=== PATIENT | male | born 1970 | race Hispanic/Latino ===

== ENCOUNTER 2022-05-30 23:25 | Inpatient (IN) | payer SELFPAY ==
[2022-05-30] MEDS ORDERED: FENTANYL CITR 100 MCG/2 ML ONE (23:46)
[2022-05-31 00:01] LABS: Absolute Lymphocytes (CBC) 2.8 K/uL (0.7-4.9); Hematocrit 43.7 % (39.6-49.0); Lymphocytes % 26.9 % (15.3-44.8); MCV 89.8 fL (80-100); MPV 8.9 fL (7.6-11.3); RBC Red Blood Cell Count 4.87 M/uL (4.33-5.43)
[2022-05-31 00:25] LABS: Albumin 3.2 g/dL (3.4-5.0); Bilirubin Direct 0.1 mg/dL (0-0.2); Bilirubin Total 0.3 mg/dL (0.2-1.0); Magnesium 1.8 mg/dL (1.8-2.4); Potassium 3.5 mmol/L (3.5-5.1)
[2022-05-31 00:26] LABS: Troponin High Sensitivity 1410.3 pg/mL (<58.9)
--- NOTE | 2022-05-31 00:56 | ER ---
Nurse's Notes [facility] Name: Lux Wilkerson Age: 51 yrs Sex: Male : 1970 Arrival Date: 05/30/2022 Time: 23:26 Bed 25 Private MD: Diagnosis: Subsequent non-ST elevation (NSTEMI) myocardial infarction Presentation: 05/30 23:27 Chief complaint: EMS states: they were toned out for report of pt with chest pain x 1 bb hour pt had STEMI May 23, 2022 seen at [facility] and had 2 stents placed. Coronavirus screen: At this time, the client does not indicate any symptoms associated with coronavirus-19. Ebola Screen: No symptoms or risks identified at this time. Initial Sepsis Screen: Does the patient meet any 2 criteria? No. Patient's initial sepsis screen is negative. Does the patient have a suspected source of infection? No. Patient's initial sepsis screen is negative. Risk Assessment: Do you want to hurt yourself or someone else? Patient reports no desire to harm self or others. Onset of symptoms was May 30, 2022. 23:27 Method Of Arrival: EMS: [facility] bb 23:27 Acuity: SHREYA 3 bb 23:32 Care prior to arrival: Medication(s) given: ASA, 81 mg, x 4, IV initiated. 20 GA, in bb the left hand. Triage Assessment: 23:46 General: Appears in no apparent distress. Behavior is cooperative. Pain: Complains of sm5 pain in chest. Neuro: Level of Consciousness is awake, alert, obeys commands, Oriented to person, place, time, situation. Cardiovascular: Reports chest pain, Capillary refill < 3 seconds Patient's skin is warm and dry. Respiratory: Airway is patent Trachea midline Respiratory effort is even, unlabored. Historical: - Allergies: 23:28 No Known Allergies; bb - Home Meds: 23:28 amlodipine oral [Active]; aripiprazole oral [Active]; Brilinta oral [Active]; bb Benztropine Mesylate Oral [Active]; sertraline oral [Active]; Hydroxyzine Oral [Active]; Metformin Oral [Active]; clopidogrel oral [Active]; rosuvastatin oral [Active]; - PMHx: 23:28 Hypertensive disorder; Diabetes mellitus; Bipolar disorder; High cholesterol; Coronary bb atherosclerosis; - PSHx: 23:28 heart stents; bb - Immunization history:: Adult Immunizations up to date. - Social history:: Smoking status: unknown. Screenin:45 Abuse screen: Denies threats or abuse. Denies injuries from another. Nutritional [facility] screening: No deficits noted. Tuberculosis screening: No symptoms or risk factors identified. Fall Risk None identified. Assessment: 05/31 00:00 Reassessment: see triage assessment. [facility] 01:29 Reassessment: No changes from previously documented assessment. Patient and/or family [facility] updated on plan of care and expected duration. Pain level reassessed. Vital Signs: 05/30 23:28 BP 113 / 66; Pulse 63; Resp 19; Temp 98.1(O); Pulse Ox 98% on R/A; Weight 111.13 kg; 5 Height 5 ft. 7 in. (170.18 cm); Pain 3/10; 23:28 Body Mass Index 38.37 (111.13 kg, 170.18 cm) [facility] ED Course: 23:26 Patient arrived in ED. mw2 23:27 Jason Milligan PA is PHCP. cp 23:27 Orville Brink MD is Attending Physician. cp 23:28 Triage completed. bb 23:28 Melinda Robertson RN is Primary Nurse. [facility] 23:28 Arm band placed on Patient placed in an exam room, on a stretcher, on high school tutor, bb on pulse oximetry. EKG completed in triage. Results shown to MD. 23:41 COVID-19 SARS RT PCR (Document "Date of Onset" if Symptomatic) Sent. [facility] 23:45 Maintain EMS IV. Dressing intact. Good blood return noted. Site clean \\T\\ dry. Gauge \\T\\ 5 site: 20G L hand. 23:46 Patient has correct armband on for positive identification. Bed in low position. Call [facility] light in reach. Side rails up X2. 23:51 XRAY Chest (1 view) In Process Unspecified. EDMS 05/31 00:55 Steven Bolden MD is Hospitalizing Provider. cp Administered Medications: 05/30 23:40 Drug: fentaNYL (PF) 25 mcg Route: IVP; Site: left hand; [facility] 05/31 01:29 Follow up: Response: No adverse reaction sm5 01:01 Drug: Lovenox (enoxaparin) 1 mg/kg Route: Sub-Q; Site: left upper abdomen; 5 01:29 Follow up: Response: No adverse reaction 5 01:40 Drug: NS 0.9% 1000 ml Route: IV; Rate: 500 ml/hr; Site: left hand; 5 01:40 Drug: morphine 2 mg Route: IVP; Infused Over: 4 mins; Site: left hand; [facility] Outcome: 00:55 Decision to Hospitalize by Provider. cp 16:05 Patient left the ED. meme Signatures: Dispatcher [employer] EDMS Regina Villanueva, RN RN bb Jason Milligan PA PA cp [place], MyKena 2 Melinda Robertson RN RN 5 Sivan Harmon Corrections: (The following items were deleted from the chart) 01:05/30 23:41 BASIC METABOLIC PANEL+C.LAB.BRZ drawn and sent. 5 EDSD 05/31 01:05/30 23:41 CBC+H.LAB.BRZ drawn and sent. [address] 05/31 01:05/30 23:41 Troponin High Sensitivity+C.LAB.BRZ drawn and sent. [address]
--- NOTE | 2022-05-31 00:56 | EDPHYS ---
Physician Documentation [facility] Name: Lux Wilkerson Age: 51 yrs Sex: Male : 1970 Arrival Date: 05/30/2022 Time: 23:26 Bed 25 Private MD: ED Physician Orville Brink HPI: 05/30 23:35 This 51 yrs old Male presents to ER via EMS with complaints of Chest Pain. cp 23:35 The patient or guardian reports chest pain that is located primarily in the anterior cp chest wall, left. Onset: 1 hour(s) ago. The pain does not radiate. The chest pain is described as grabbing. Duration: The patient or guardian reports a single episode, that is still ongoing, but improving. 23:35 Patient reports history of NV on 05-23-2022 in which he was admitted to [facility] in [facility] where he had 2 cardiac stents placed. Historical: - Allergies: 23:28 No Known Allergies; bb - Home Meds: 23:28 amlodipine oral [Active]; aripiprazole oral [Active]; Brilinta oral [Active]; bb Benztropine Mesylate Oral [Active]; sertraline oral [Active]; Hydroxyzine Oral [Active]; Metformin Oral [Active]; clopidogrel oral [Active]; rosuvastatin oral [Active]; - PMHx: 23:28 Hypertensive disorder; Diabetes mellitus; Bipolar disorder; High cholesterol; Coronary bb atherosclerosis; - PSHx: 23:28 heart stents; bb - Immunization history:: Adult Immunizations up to date. - Social history:: Smoking status: unknown. ROS: 23:40 Constitutional: Negative for body aches, chills, fever, poor PO intake. cp 23:40 Cardiovascular: Positive for chest pain, Negative for edema, palpitations. 23:40 Eyes: Negative for injury, pain, redness, and discharge. cp Exam: 23:33 ECG was reviewed by the Attending Physician. cp 23:43 Constitutional: The patient appears in no acute distress, alert, awake, cp non-diaphoretic, non-toxic, well developed, well nourished, obese, uncomfortable. 23:43 Head/Face: Normocephalic, atraumatic. cp 23:43 Eyes: Periorbital structures: appear normal, Conjunctiva: normal, no exudate, no injection, Sclera: no appreciated abnormality, Lids and lashes: appear normal, bilaterally. 23:43 ENT: External ear(s): are unremarkable, Nose: is normal, Mouth: Lips: moist, Oral mucosa: moist, Posterior pharynx: Airway: no evidence of obstruction, patent. 23:43 Neck: ROM/movement: is normal, is supple, without pain, no range of motions limitations. 23:43 Chest/axilla: Inspection: normal, Palpation: is normal, no crepitus, no tenderness. 23:43 Cardiovascular: Rate: normal, Rhythm: regular, Edema: is not appreciated, JVD: is not appreciated. 23:43 Respiratory: the patient does not display signs of respiratory distress, Respirations: cp normal, no use of accessory muscles, no retractions, labored breathing, is not present, Breath sounds: are clear throughout, no decreased breath sounds, no stridor, no wheezing. 23:43 Abdomen/GI: Inspection: abdomen appears normal, Bowel sounds: active, all quadrants, cp Palpation: abdomen is soft and non-tender, in all quadrants. 23:43 Back: pain, is absent, ROM is normal. 23:43 Neuro: Orientation: to person, place \\T\\ time. Mentation: is normal, Cerebellar function: is grossly normal, Motor: moves all fours, strength is normal, Sensation: is normal. Vital Signs: 23:28 BP 113 / 66; Pulse 63; Resp 19; Temp 98.1(O); Pulse Ox 98% on R/A; Weight 111.13 kg; sm5 Height 5 ft. 7 in. (170.18 cm); Pain 3/10; 23:28 Body Mass Index 38.37 (111.13 kg, 170.18 cm) sm5 MDM: 23:34 Patient medically screened. cp 05/31 00:35 The patient was not given aspirin in the Emergency Department. Administered by EMS. cp 00:35 Data reviewed: vital signs, nurses notes, lab test result(s), EKG, radiologic studies, cp plain films. Test interpretation: by ED physician or midlevel provider: ECG, plain radiologic studies. Response to treatment: the patient's symptoms have mildly improved after treatment, and as a result, I will admit patient. 05/30 23:33 Order name: Basic Metabolic Panel; Complete Time: 00:31 cp 05/30 23:33 Order name: CBC with Diff; Complete Time: 00:19 cp 05/30 23:33 Order name: LFT's; Complete Time: 00:31 cp 05/30 23:33 Order name: Magnesium; Complete Time: 00:31 cp 05/30 23:33 Order name: NT PRO-BNP; Complete Time: 00:31 cp 05/30 23:33 Order name: PT-INR; Complete Time: 00:19 cp 05/30 23:33 Order name: Troponin HS; Complete Time: 00:31 cp 05/31 00:32 Interpretation: Abnormal: Troponin HS 1410.3. cp 05/30 23:33 Order name: COVID-19 SARS RT PCR (Document "Date of Onset" if Symptomatic); Complete cp Time: 01:04 05/31 05:13 Order name: Creatine Phosphokinase; Complete Time: 05:14 EDMS 05/31 05:13 Order name: CKMB Creatine Kinase MB; Complete Time: 05:14 EDHI 05/31 05:13 Order name: Troponin High Sensitivity; Complete Time: 05:14 EDMS 05/30 23:32 Order name: EKG; Complete Time: 23:33 05/30 23:32 Order name: Cardiac monitoring; Complete Time: 23:36 05/30 23:32 Order name: EKG - Nurse/Tech; Complete Time: 23:36 05/30 23:33 Order name: XRAY Chest (1 view); Complete Time: 13:28 05/30 23:33 Order name: EKG; Complete Time: 23:35 05/31 05:13 Order name: Lipid Profile; Complete Time: 05:14 EDMS 05/31 05:14 Order name: Thyroid Stimulating Hormone; Complete Time: 05:14 EDMS 05/31 08:22 Order name: Glucose, Ancillary Testing; Complete Time: 13:28 EDMS 05/31 11:37 Order name: Troponin High Sensitivity; Complete Time: 13:28 EDMS 05/31 12:19 Order name: Glucose, Ancillary Testing; Complete Time: 13:28 EDMS 05/31 12:46 Order name: Urinalysis; Complete Time: 13:28 EDHI 05/30 23:32 Order name: IV Saline Lock; Complete Time: 23:45 05/30 23:32 Order name: Labs collected and sent; Complete Time: 23:45 bb 05/30 23:32 Order name: O2 Per Protocol; Complete Time: 23:36 bb 05/30 23:32 Order name: O2 Sat Monitoring; Complete Time: 23:36 bb 05/30 23:33 Order name: Cardiac monitoring; Complete Time: 23:41 cp 05/30 23:33 Order name: EKG - Nurse/Tech; Complete Time: 23:41 cp 05/30 23:33 Order name: IV Saline Lock; Complete Time: 23:41 cp 05/30 23:33 Order name: Labs collected and sent; Complete Time: 23:41 cp 05/30 23:33 Order name: O2 Per Protocol; Complete Time: :41 cp 05/30 23:33 Order name: O2 Sat Monitoring; Complete Time: :41 cp EC/12 23:33 Rate is 60 beats/min. Rhythm is regular. NV interval is normal. QRS interval is normal. cp QT interval is normal. T waves are Inverted in leads II, aVF, aVR, V3, V4, V5, V6. Interpreted by me. Reviewed by me. Administered Medications: 23:40 Drug: fentaNYL (PF) 25 mcg Route: IVP; Site: left hand; [facility] 05/31 01:29 Follow up: Response: No adverse reaction sm5 01:01 Drug: Lovenox (enoxaparin) 1 mg/kg Route: Sub-Q; Site: left upper abdomen; sm5 01:29 Follow up: Response: No adverse reaction sm5 01:40 Drug: NS 0.9% 1000 ml Route: IV; Rate: 500 ml/hr; Site: left hand; sm5 01:40 Drug: morphine 2 mg Route: IVP; Infused Over: 4 mins; Site: left hand; 5 Disposition: 06:05 Co-signature as Attending Physician, Orville Brink MD. mh7 Disposition Summary: 05/31/22 00:55 Hospitalization Ordered Hospitalization Status: Inpatient Admission cp Provider: Steven Bolden cp Condition: Stable cp Problem: new cp Symptoms: have improved cp Bed/Room Type: Standard cp Location: [facility] ER HOLD(05/31/22 02:09) Room Assignment: ERHOLD-(05/31/22 02:09) cg Diagnosis - Subsequent non-ST elevation (NSTEMI) myocardial infarction cp Forms: - Medication Reconciliation Form cp - SBAR form cp Signatures: Dispatcher [employer] EDHI Regina Villanueva, TIFFANIE RN Jason Steven PA PA cp Garcia, Cindy, RN RN cg Orville Brink MD MD mh7 Melinda Robertson RN RN sm5 Neisha Aguillon PA PA sb3 Corrections: (The following items were deleted from the chart) 05/30 23:41 23:33 Chest Single View+RAD.RAD.BRZ [facility]. [facility] 01:05/30 23:33 BASIC METABOLIC PANEL+C.LAB.BRZ ordered. [facility] 01:05/30 23:33 CBC+H.LAB.BRZ ordered. [facility] 05/[facility] 01:05/30 23:33 Troponin High Sensitivity+C.LAB.BRZ ordered. [facility] 05/31 02:09 00:55 Telemetry/MedSurg (Inpatient) cp cg 02:09 00:55 cp cg 03:05 05/30 22:40 Constitutional: Negative for body aches, chills, fever, poor PO intake, cp cp 05/31 03:05 05/30 22:40 Cardiovascular: Positive for chest pain, Negative for edema, palpitations, cp cp
[2022-05-31] MEDS ORDERED: ENOXAPARIN 100 MG/ML SYR SQ ONE (01:06)
[2022-05-31] MEDS ORDERED: NA CHLORIDE 0.9% 1,000 ML ONE (01:38)
[2022-05-31] MEDS ORDERED: MORPHINE 2 MG/ML SYR ONE ×2 (01:38→08:41)
--- NOTE | 2022-05-31 02:12 | P.HP ---
Certification for Inpatient Patient admitted to: Inpatient With expected LOS: <2 Midnights Patient will require the following post-hospital care: None Practitioner: I am a practitioner with admitting privileges, knowledge of patient current condition, hospital course, and medical plan of care. Services: Services provided to patient in accordance with Admission requirements found in Title 42 Section 412.3 of the Code of Federal Regulations <Neisha Aguillon - Last Filed: 05/31/22 02:52> Patient History Date of Service: 05/31/22 Reason for admission: NSTEMI History of Present Illness: Patient is a 51-year-old male with hypertension, CAD, type 2 diabetes [id number], hyperlipidemia who presented to the ED with complaints of chest pain that started 1 hour prior to arrival. Patient had a STEMI on May 23, 2022 and underwent cardiac catheterization with placement of 2 stents and was discharged from [facility] on May 25. He reports that he has been taking his medications as prescribed and denies any other episodes of chest pain. He states the chest pain tonight come on suddenly, unprovoked. EMS gave 324 mg aspirin in route. Upon arrival to the ED, EKG with nonspecific changes. Troponin elevated at 1410. Patient states that his chest pain has subsided with pain medication. He was started on therapeutic Lovenox in the ED. Patient is admitted for further evaluation and treatment. Home medications list reviewed: Yes - Past Medical/Surgical History Diabetic: Yes -: Type 2 Diabetes, Non-Insulin Dependent -: CAD -: STEMI -: HTN -: HLD -: Cardiac stent x 2 Psychosocial/ Personal History: Patient lives in [place]. - Family History Brother -: Heart disease Mother -: Diabetes - Social History Smoking Status: Former smoker Alcohol use: No CD- Drugs: No Caffeine use: Yes Place of Residence: Home <PalNeisha - Last Filed: 05/31/22 02:52> Date of Service: 05/31/22 <Steven Bolden - Last Filed: 06/03/22 21:11> Review of Systems Cardiovascular: Chest Pain <PalNeisha - Last Filed: 05/31/22 02:52> Physical Examination - Physical Exam General: Alert, In no apparent distress, Obese HEENT: Atraumatic, PERRLA, Mucous membr. moist/pink, EOMI, Sclerae nonicteric Neck: Supple, 2+ carotid pulse no bruit, No LAD, Without JVD or thyroid abnormality Respiratory: Clear to auscultation bilaterally, Normal air movement Cardiovascular: No edema, Regular rate/rhythm, Normal S1 S2 Gastrointestinal: Normal bowel sounds, No tenderness Musculoskeletal: No tenderness Integumentary: No rashes Neurological: Normal speech, Normal strength at 5/5 x4 extr, Normal tone, Normal affect - Studies Laboratory Data (last 24 hrs) 05/30/22 23:35: PT 11.0, INR 1.00 05/30/22 23:35: WBC 10.6, Hgb 14.9, Hct 43.7, Plt Count 221 05/30/22 23:35: Sodium 138, Potassium 3.5, BUN 11, Creatinine 1.15, Glucose 225 H, Magnesium 1.8, Total Bilirubin 0.3, AST 20, ALT 27, Alkaline Phosphatase 102 05/30/22 23:32: WBC Cancelled, Hgb Cancelled, Hct Cancelled, Plt Count Cancelled 05/30/22 23:32: Sodium Cancelled, Potassium Cancelled, BUN Cancelled, Creatinine Cancelled, Glucose Cancelled <Neisha Aguillon - Last Filed: 05/31/22 02:52> Assessment and Plan - Problems (Diagnosis) (1) Subsequent non-ST elevation (NSTEMI) myocardial infarction Status: Acute (2) CAD (coronary artery disease) Status: Chronic Qualifiers: Coronary Disease-Associated Artery/Lesion type: enterprise artery [place] vs. transplanted heart: enterprise heart Associated angina: with unstable angina Qualified Code(s): I25.110 - Atherosclerotic heart disease of enterprise coronary artery with unstable angina pectoris (3) Hypertension Status: Chronic Qualifiers: Hypertension type: primary hypertension Qualified Code(s): I10 - Essential (primary) hypertension (4) Type 2 diabetes mellitus Status: Chronic Qualifiers: Diabetes mellitus meterman insulin use: without meterman use Diabetes mellitus complication status: with hyperglycemia Qualified Code(s): E11.65 - Type 2 diabetes mellitus with hyperglycemia (5) Hyperlipidemia Status: Chronic Qualifiers: Hyperlipidemia type: unspecified Qualified Code(s): E78.5 - Hyperlipidemia, unspecified - Plan -Continue therapeutic lovenox q12 hours -Cardiology consulted -Trend troponin and check CPK/CKMB -Monitor on telemetry -Echo, lipid panel, TSH ordered -NPO in case of cardiac catheterization -Morphine PRN -ACHS accu checks with mild sliding scale insulin -Reconcile and continue home medications -Full code Discharge Plan: Home Plan to discharge in: 48 Hours - Advance Directives Does patient have a Living Will: No Does patient have a Durable POA for Healthcare: No - Code Status/Comfort Care Code Status Assessed: Yes (Full) Critical Care: No Time Spent Managing Pts Care (In Minutes): 50 <Neisha Aguillon - Last Filed: 05/31/22 02:52> Date of Service: 05/31/22 SUBJECTIVE: Agree with the HPI as mentioned above OBJECTIVE: Vital Signs: reviewed General: WNL HEENT:WNL CV: WNL Lungs: WNL Abd: WNL Ext: WNL ASSESSMENT: 1. Chest pain rule out acute coronary syndrome PLAN: Plan as mentioned above <Steven Bolden - Last Filed: 06/03/22 21:11>
[2022-05-31] MEDS ORDERED: ONDANSETRON 4 MG/2 ML VIAL IV PRN (03:25)
[2022-05-31] MEDS ORDERED: ACETAMINOPHEN 500 MG TAB PO PRN (03:25)
[2022-05-31] MEDS ORDERED: MORPHINE 2 MG/ML SYR IV PRN (03:25)
[2022-05-31 03:38] VITALS: BMI 38.3
[2022-05-31 03:44] VITALS: O2SAT 98
[2022-05-31 05:12] LABS: CKMB Creatine Kinase MB 1.6 ng/mL (1.0-3.6); Thyroid Stimulating Hormone 3.44 uIU/mL (0.360-3.740)
[2022-05-31 05:13] LABS: Troponin High Sensitivity 1421.7 pg/mL (<58.9)
[2022-05-31] MEDS: INSULIN -REGULAR HUMAN 50 UNIT/0.5 ML ML SQ SCH ×2 (07:30→11:30)
[2022-05-31] MEDS ORDERED: MAGNESIUM SULFATE 1 gm IVPB 1 GM/100 ML BAG IV ONE ×2 (07:43→08:33)
--- NOTE | 2022-05-31 07:49 | EKG ---
Test Date: 2022-05-30 Test Time: 23:27:25 Fha Underwriter: ERNST MEASUREMENT RESULTS: Intervals: Rate: 60 HI: 156 QRSD: 90 QT: 424 QTc: 424 [place]: P: 14 HI: 156 QRS: -20 T: -29 INTERPRETIVE STATEMENTS: Normal sinus rhythm Voltage criteria for left ventricular hypertrophy Inferior infarct, age undetermined T wave abnormality, consider anterolateral ischemia Abnormal ECG No previous ECG available for comparison Electronically Signed On 05-31-22 07:48:12 CDT by Salbador Burnett
[2022-05-31] MEDS ORDERED: POTASSIUM CL SA 10 MEQ TAB PO ONE ×2 (08:00→08:33)
[2022-05-31] MEDS ORDERED: ASPIRIN EC 81 MG TAB PO ONE (08:36)
[2022-05-31] MEDS ORDERED: ENOXAPARIN 60 MG/0.6 ML SQ ONE (08:37)
[2022-05-31] MEDS ORDERED: Enoxaparin 120 MG/0.8 ML SYR SQ SCH (09:00)
[2022-05-31] MEDS ORDERED: ASPIRIN EC 81 MG TAB PO SCH (09:00)
--- NOTE | 2022-05-31 11:48 | RAD REPORT ---
EXAM DESCRIPTION: RAD - Chest Single View - 05/30/2022 11:49 pm CLINICAL HISTORY: The patient is 51 years old and is Male; CHEST PAIN TECHNIQUE: Frontal view of the chest. COMPARISON: No relevant prior studies available. FINDINGS: LUNGS: Unremarkable. No consolidation. PLEURAL SPACE: Unremarkable. No pneumothorax. HEART: Unremarkable. No cardiomegaly. MEDIASTINUM: Unremarkable. BONES/JOINTS: Unremarkable. UPPER ABDOMEN: Unremarkable as visualized. IMPRESSION: No acute cardiopulmonary process. Electronically signed by: Senait Garcia MD 05/31/2022 12:12 AM CDT Due to temporary technical issues with the PACS/Fluency reporting system, reports are being signed by the in house radiologists without review as a courtesy to insure prompt reporting. The interpreting radiologist is fully responsible for the content of the report.
[2022-05-31 11:54] VITALS: BP 104/66; TEMP 97.6
--- NOTE | 2022-05-31 11:54 | ECHO ---
HEIGHT: 5 ft 7 in WEIGHT: 245 lb 0 oz DATE OF STUDY: 05/31/[address]: Neisha Aguillon 2-DIMENSIONAL: YES M.MODE: YES DOPPLER: YES COLOR FLOW: YES TDS: NO PORTABLE: YES DEFINITY: NO BUBBLE STUDY: NO DIAGNOSIS: NSTEMI CARDIAC HISTORY: CATHERIZATION: YES SURGERY: NO PROSTHETIC VALVE: NO PACEMAKER: NO MEASUREMENTS (cm) DIASTOLIC (NORMALS) SYSTOLIC (NORMALS) IVSd 1.2 (0.6-1.2) LA Diam 3.5 (1.9-4.0) LVEF 69% LVIDd 4.4 (3.5-5.7) LVIDs 2.7 (2.0-3.5) %FS 39% LVPWd 1.2 (0.6-1.2) Ao Diam 2.6 (2.0-3.7) 2 DIMENSIONAL ASSESSMENT: RIGHT ATRIUM: NORMAL LEFT ATRIUM: NORMAL RIGHT VENTRICLE: NORMAL LEFT VENTRICLE: NORMAL TRICUSPID VALVE: NORMAL MITRAL VALVE: NORMAL PULMONIC VALVE: NORMAL AORTIC VALVE: NORMAL PERICARDIAL EFFUSION: NONE AORTIC ROOT: NORMAL LEFT VENTRICULAR WALL MOTION: NORMAL. DOPPLER/COLOR FLOW: NORMAL. COMMENTS: NORMAL 2D ECHO WITH DOPPLER. NO WALL AMEE ABNORMALITY. NO EFFUSION. TECHNOLOGIST: ANNA BROWNE
[2022-05-31] MEDS ORDERED: INSULIN -REGULAR HUMAN 50 UNIT/0.5 ML ML ONE (12:26)
[2022-05-31 12:46] LABS: Urine Appearance Clear (Clear); Urine Bilirubin Negative (Negative); Urine Blood Negative (Negative); Urine Color Yellow (Yellow); Urine Glucose 1+ (Negative); Urine Protein Negative (Negative); Urine Specific Gravity 1.015 (1.005-1.030); Urine Urobilinogen 0.2 mg/dL (0.2-1.0); Urine pH 5.5 (5.0-7.0)
--- NOTE | 2022-05-31 18:16 | P.DS ---
Discharge Date: 05/31/22 Disposition: ROUTINE DISCHARGE Discharge Condition: GOOD Reason for Admission: NSTEMI Brief History of Present Illness: Patient is a 51-year-old male with hypertension, CAD, type 2 diabetes [id number], hyperlipidemia who presented to the ED with complaints of chest pain that started 1 hour prior to arrival. Patient had a STEMI on May 23, 2022 and underwent cardiac catheterization with placement of 2 stents and was discharged from [facility] on May 25. He reports that he has been taking his medications as prescribed and denies any other episodes of chest pain. He states the chest pain tonight come on suddenly, unprovoked. EMS gave 324 mg aspirin in route. Upon arrival to the ED, EKG with nonspecific changes. Troponin elevated at 1410. Patient states that his chest pain has subsided with pain medication. He was started on therapeutic Lovenox in the ED. Patient is admitted for further evaluation and treatment. Hospital Course: spoke with Cardiology and patient recently had intervention done in [place]. Anticipated that troponin was still be elevated although they are downtrending. Patient was not aware of his cardiac meds and we have gone over with these with him. He needs to be compliant with his cardiac meds: Poor. At this time, patient is stable for discharge he will need close cardiology follow-up as an outpatient. Vital Signs/Physical Exam: Temp Pulse Resp BP Pulse Ox 97.6 F 63 16 104/66 100 05/31/22 11:52 05/31/22 11:52 05/31/22 11:52 05/31/22 11:52 05/31/22 11:52 General: Alert, In no apparent distress, Oriented x3 Laboratory Data at Discharge: WBC 10.6 K/uL (4.3-10.9) 05/30/22 23:35 Hgb 14.9 g/dL (13.6-17.9) 05/30/22 23:35 Hct 43.7 % (39.6-49.0) 05/30/22 23:35 Plt Count 221 K/uL (152-406) 05/30/22 23:35 PT 11.0 SECONDS (9.5-12.5) 05/30/22 23:35 INR 1.00 05/30/22 23:35 Sodium 138 mmol/L (136-145) 05/30/22 23:35 Potassium 3.5 mmol/L (3.5-5.1) 05/30/22 23:35 BUN 11 mg/dL (7-18) 05/30/22 23:35 Creatinine 1.15 mg/dL (0.55-1.3) 05/30/22 23:35 Glucose 225 mg/dL (74-106) H 05/30/22 23:35 Magnesium 1.8 mg/dL (1.8-2.4) 05/30/22 23:35 Total Bilirubin 0.3 mg/dL (0.2-1.0) 05/30/22 23:35 AST 20 U/L (15-37) 05/30/22 23:35 ALT 27 U/L (12-78) 05/30/22 23:35 Alkaline Phosphatase 102 U/L (45-117) 05/30/22 23:35 Triglycerides 275 mg/dL (<150) H 05/31/22 04:20 Cholesterol 92 mg/dL (<200) 05/31/22 04:20 HDL Cholesterol 30 mg/dL (40-60) L 05/31/22 04:20 Cholesterol/HDL Ratio 3.07 05/31/22 04:20 Home Medications: Aspirin [Aspirin EC 81 MG] 81 mg PO DAILY #30 tablet. 05/31/22 Atorvastatin Calcium [Lipitor] 40 mg PO BEDTIME #30 tab 05/31/22 Benztropine Mesylate [Cogentin] 0.5 mg PO DAILY 05/31/22 Clopidogrel Bisulfate [Plavix] 75 mg PO DAILY #30 tablet 05/31/22 Metoprolol Tartrate [Lopressor] 25 mg PO BID #60 tab 05/31/22 Sertraline [Zoloft*] 200 mg PO DAILY 05/31/22 New Medications: Aspirin [Aspirin EC 81 MG] 81 mg PO DAILY #30 tablet. Atorvastatin Calcium [Lipitor] 40 mg PO BEDTIME #30 tab Metoprolol Tartrate [Lopressor] 25 mg PO BID #60 tab Clopidogrel Bisulfate [Plavix] 75 mg PO DAILY #30 tablet Physician Discharge Instructions: OK TO DC IV AND DC HOME FOLLOW-UP WITH PRIMARY CARE PROVIDER IN 1-2 WEEKS FOLLOW-UP WITH CARDIOLOGY IN 1-2 WEEKS RETURN TO THE ER IF Symptoms worsen CALL DR. RUBIO AT [phone] IF ANY QUESTIONS REGARDING HOSPITAL STAY. PLEASE CALL THE FLOOR AT [phone] IF ANY MEDICATION OR NURSING QUESTIONS. Diet: AHA Activity: Fall precautions Followup: Unknown,U [Primary Care Provider] - Time spent managing pt's care (in minutes): 35
[2022-05-31] MEDS ORDERED: ATORVASTATIN 40 MG TAB PO SCH (21:00)
--- NOTE | 2022-06-03 10:47 | CON ---
Date of Consultation: 05/31/[address] patient admitted to Dr. Bolden on 05/31/2022. I saw the patient on 05/31/2022. Reason For Consultation: Chest pain and elevated troponin. History Of Present Illness: Mr. Wilkerson is a 51-year-old male. Has a history of hypertension, diabet es, coronary artery disease, dyslipidemia. Came in with pain that has been going on for about an billy r. Less than a week ago, he had an ID and ended up with 2 stents at [facility]. His EKG when he came in did not reveal any acute changes. He did not have any shortness of breath, nausea, vomiting, kalyn phoresis, PND, orthopnea, pedal edema, palpitations, or syncope. He stated this pain is different th an what was when he had a heart attack. His troponin came back elevated at 1410. Past Medical History: As stated above. Allergies: NONE. Review of Systems: Negative. Social History: Negative. Family History: Positive for heart disease in his brother, diabetes in his mother. Physical Examination: Vital Signs: Stable. He was afebrile. HEENT: Negative. Neck: Supple with no bruit. Chest: Clear to auscultation and percussion. Cardiac: Revealed a regular rhythm and rate. No murmurs, gallops, or rubs. Abdomen: Benign. Extremities: Revealed no clubbing, cyanosis, or edema. Medications: At home include aspirin, Lipitor, Plavix, metoprolol, and Zoloft as well as Cogentin. Diagnostic Data: His EKG showed left ventricular hypertrophy. Chest x-ray was negative. Echocardio gram which was done before I saw the patient was normal with ejection fraction of 69%. No wall motio n abnormalities and no effusion. Impression And Plan: Chest pain possibly secondary to Plavix or maybe stretching of his myocardium b y the previous stent. He only had the stent less than a week ago and those stents were occluded with thrombus causing severe ST elevation which he does not have. I think the troponin is a remnant of h is recent ID. His echocardiogram is normal. His EKGs did not show any acute changes. His chest x-r ay is negative. I am comfortable with him going home and following up with his interventional cardio logist in [facility] in the near future. Continue present regimen. May be a good idea to give him so me nitroglycerin to take on an as-needed basis. I noticed on his medicine, he is taking Lipitor 40 m g and that probably should be bumped up to 80 mg. MAURO/HARSHIL Voice ID: [id number] Report ID: [id number]
== END 2022-05-31 14:00 | disposition home or self-care (01) | DRG 282 ==
LOC: ER 23:25 → ERHOLD 05-31 02:07
PROVIDERS: ADMIT Hospitalist; ATTEND Hospitalist
DX: R07.9 Chest pain, unspecified (principal); I21.9 Acute myocardial infarction, unspecified; E11.9 Type 2 diabetes mellitus without complications; I25.10 Atherosclerotic heart disease of native coronary artery without angina pectoris; I10 Essential (primary) hypertension; E78.5 Hyperlipidemia, unspecified; Z95.5 Presence of coronary angioplasty implant and graft; I25.2 Old myocardial infarction; Z87.891 Personal history of nicotine dependence; Z20.822 Contact with and (suspected) exposure to COVID-19
CPT/HCPCS: 36415; 71045; 80048; 80061; 80076; 81003; 82550; 82553; 82947; 83735; 83880; 84443; 84484; 85025; 85610; 93005; 93306; 96372; 96374; 96375; 99284; J1650; J1815; J2270; J3010; J3475; J7030; U0003